=== PATIENT | male | born 2000 | race Asian ===

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

== ENCOUNTER 2019-07-05 23:44 | Emergency (ER) | payer MEDICAID ==
[~2019-07-05] VITALS: Ht 172.7 cm; Wt 120.5 kg
[2019-07-06] MEDS ORDERED: AMOX TR/POT CLAV 875 MG/125 MG TABLET PO ONE (00:30)
[2019-07-06] MEDS ORDERED: ACETAMINOPHEN 500 MG TABLET PO ONE (00:30)
[2019-07-06 00:40] VITALS: BP 146/77
== END 2019-07-06 01:02 | disposition home or self-care (01) ==
LOC: EMS 23:45
DX: H66.92 Otitis media, unspecified, left ear (principal); J34.89 Other specified disorders of nose and nasal sinuses